=== PATIENT | female | born 1990 | race Caucasian/White ===

== ENCOUNTER → 2017-12-17 17:05 | Outpatient (CLI) | payer OTHER, MEDICAID, SELFPAY | PROVIDERS: PCP Pediatrics; Visit Provider Family Medicine | DX: Z11.3 Encounter for screening for infections with a predominantly sexual mode of transmission (principal) | CPT/HCPCS: 87491; 87591 ==

== ENCOUNTER 2023-01-13 12:42 | Emergency (ER) | payer OTHER, MEDICAID, SELFPAY ==
[2023-01-13] VITALS (115 sets, daily range): BP systolic 71–143; BP diastolic 40–82; PULSE 104–150; RESP 14–39; TEMP 36.1–40.4; O2SAT 88–100; BMI 28.3
--- NOTE | 2023-01-13 13:14 | DI.RAD.S_ITS ---
PROCEDURE: XR CHEST 1V INDICATIONS: suspected sepsis TECHNIQUE: One view of the chest was acquired. COMPARISON: None. FINDINGS: Surgical changes and devices: Left IJ central venous catheter tip projects over the low SVC. Lungs and pleura: Lungs are clear. No pleural effusions or pneumothorax. Mediastinum: Mediastinal contours appear normal. Heart size is normal. Bones and chest wall: No suspicious bony lesions. Overlying soft tissues appear unremarkable. IMPRESSION: Left IJ central venous catheter tip projects over the low SVC. Clear chest. Dictated by: Bobo Rodriguez M.D. on 01/13/2023 at 15:56 Approved by: Bobo Rodriguez M.D. on 01/13/2023 at 15:57
[2023-01-13] MEDS: SODIUM CHLORIDE 0.9% 1,000 ML 1000 ML IV (13:34)
--- NOTE | 2023-01-13 13:40 | ED_ITS ---
HPI - Weakness General Chief complaint: Fever Stated complaint: Poss heat exhaustion/dehydration Time Seen by Provider: 01/13/23 13:40 Source: patient Mode of arrival: Wheelchair History of Present Illness HPI Narrative: Patient 32-year-old female history of IV drug abuse presenting today with not feeling well. She reports that she is had fevers chills rigors. She is noted to be tachycardic and hypotensive in the ER. She is quite adamant that she has been clean for a couple of months however she was feeling so poorly over the last few days that she used again. She denies any shortness of breath or chest pain no abdominal pain nausea vomiting. No painful frequent urination. No swelling in her legs. Related Data Allergies Allergy/AdvReac Type Severity Reaction Status Date / Time No Known Drug Allergies Allergy Verified 01/13/23 13:10 Review of Systems Review of Systems ROS Unobtainable: All systems reviewed & are unremarkable except as noted in HPI and below Patient History Medical History Chicken pox Frequent UTI Hayfever IV drug abuse Pyelonephritis Surgical History Status post knee surgery (2010) Social History marital status: unmarried,living together number of children: 1 household members: significant other and family lives independently: Yes education level: high school [employer]: [employer] leisure activities: sports seatbelt use: always helmet use: Yes water heater temp set < 120 deg: No working smoke detector in home: Yes fire extinguisher in home: Yes carbon monox detector in home: Yes firearms in home: No do you feel safe at home: Yes Smoking Status: Former smoker second hand exposure: Yes alcohol intake: current substance use type: former substance user during the past year weight has: remained stable Type(s) of exercise: none frequency: does not exercise duration: decline to answer Smoking Status: Former smoker alcohol intake frequency: 0-2 drinks per day Substance Use Type: heroin and methamphetamine Exam Initial Vital Signs Initial Vital Signs: Vital Signs Temperature 97 F L 01/13/23 13:06 Pulse Rate 150 H 01/13/23 13:06 Respiratory Rate 14 01/13/23 13:06 Blood Pressure 83/50 L 01/13/23 13:06 Pulse Oximetry 100 01/13/23 13:06 Oxygen Delivery Method Room Air 01/13/23 13:06 GENERAL: Alert 32-year-old appears ill HEENT: Head atraumatic,EOMI, pupils reactive, face symmetric, moist mucous m embranes CARDIOVASCULAR: Tachycardic regular or rubs RESPIRATORY: Breath sounds equal bilaterally, no wheezes rales or rhonchi. ABDOMEN: Soft, nontender. Normoactive bowel sounds all 4 quadrants. No guarding or rebound. EXTREMITIES: Normal range of motion, no clubbing or edema. Neurovascularly i ntact NEUROLOGICAL: Alert and oriented x4. Moving all extremities SKIN: Track alcala noted bilateral external carotids Procedures Central Line Placement Left IJ: Time Out Performed: Yes Patient Placed on Monitor/Pulse Ox: Yes MD Prep: mask, gown and gloves Central Line Prep: Chlorhexidine scrub and sterile drapes applied Local Anesthetic: lidocaine 1% Amount of anesthesia used (mL): 4 Ultrasound Used for Placement: Yes Central Line Lumen Inserted: triple Post Procedure: good blood return, all ports aspirated, flushed, capped, sterile dressing applied and line stabilization device Post Procedure X-Ray: tip of catheter in good position and no pneumothorax seen Patient Tolerated Procedure: Well and No complications Additional Comments: Initial attempt was right-sided however unable to thread the wire there is a large valve. Left-sided was easily placed Course Orders Ordered: ED Orders 01/13/23 13:14 XR chest 1V Stat EKG-12 Lead Stat RT Consult Eval and Treat NOW 01/13/23 13:32 Respiratory Panel (Film Array) Stat 01/13/23 13:40 BNP [NT-proBNP (BNP-Adult 18+)] Stat Blood Culture Stat Complete Blood Count AUTO DIFF Stat Comprehensive Metabolic Panel Stat ETOH [Ethanol (ETOH)] Stat Lactate (Lactic Acid) Stat Lipase Stat PTT Partial Thromboplastin Jameel Stat Test Serum,Qual Stat Procalcitonin Stat Prothrombin Time INR Stat Troponin & CK Cardiac Panel Stat 01/13/23 14:28 EC echo limited Stat 01/13/23 14:30 PRBC [Packed Cells] Stat Type and Screen Stat 01/13/23 15:27 Urine Drug Screen, Rapid Stat 01/13/23 17:55 Transfusion Reaction Stat NOREPINEPHRINE BITARTRATE/D5W (Levophed) 4 mg in 250 mls @ 23.814 mls/hr IV TITRATE JEFERSON; Protocol Last Titration: 01/13/23 19:59 Dose: 0.13 mcg/kg/min, 30.958 mls/hr Documented By: Titration: 01/13/23 19:34 Dose: 0.1 mcg/kg/min, 23.814 mls/hr Documented By: Titration: 01/13/23 16:22 Dose: 0.06 mcg/kg/min, 15 mls/hr Documented By: Titration: 01/13/23 16:10 Dose: 0.1 mcg/kg/min, 23.814 mls/hr Documented By: Titration: 01/13/23 15:48 Dose: 0 mcg/kg/min, 0 mls/hr Documented By: Admin: 01/13/23 14:41 Dose: 0.1 mcg/kg/min, 23.814 mls/hr Documented By: SB Sodium Chloride (Normal Saline 0.9%) 1,000 mls @ 150 mls/hr IV CONT JEFERSON Last Admin: 01/13/23 18:46 Dose: 150 mls/hr Documented By: SB Ondansetron HCl (Ondansetron 4 Mg Odt) 4 mg SL NOW PRN PRN Reason: Nausea And Vomiting Discontinued Medications Acetaminophen (Acetaminophen 325 Mg Tablet) 975 mg PO NOW ONE Stop: 01/13/23 17:17 Last Admin: 01/13/23 17:37 Dose: 975 mg Documented By: SB Sodium Chloride (Normal Saline 0.9%) 1,000 mls @ 1,000 mls/hr IV BOLUS ONE Stop: 01/13/23 14:13 Last Infusion: 01/13/23 14:24 Dose: 0 mls/hr Documented By: Infusion: 01/13/23 14:21 Dose: 0 mls/hr Documented By: Admin: 01/13/23 13:34 Dose: 1,000 mls/hr Documented By: SB Sodium Chloride (Normal Saline 0.9%) 1,905.09 mls @ 635.03 mls/hr 30 ml/kg infuse over 3 hr (1905.09 ml) IV NOW ONE Stop: 01/13/23 17:19 Last Infusion: 01/13/23 16:13 Dose: 0 mls/hr Documented By: Infusion: 01/13/23 14:36 Dose: 999 mls/hr Documented By: Admin: 01/13/23 14:22 Dose: 635.03 mls/hr Documented By: LING Vancomycin HCl (Vancomycin) 1,000 mg in 200 mls @ 200 mls/hr IV NOW ONE Stop: 01/13/23 15:38 Last Infusion: 01/13/23 16:37 Dose: 0 mls/hr Documented By: Admin: 01/13/23 15:30 Dose: 200 mls/hr Documented By: LING Piperacillin Sod/Tazobactam (Sod 4.5 gm/ Sodium Chloride) 100 mls @ 200 mls/hr IV NOW ONE Stop: 01/13/23 14:40 Last Infusion: 01/13/23 15:29 Dose: 0 mls/hr Documented By: Admin: 01/13/23 14:47 Dose: 200 mls/hr Documented By: LING Ketorolac Tromethamine (Ketorolac 30 Mg/Ml Vial) 15 mg IV NOW ONE Stop: 01/13/23 18:25 Last Admin: 01/13/23 18:38 Dose: 15 mg Documented By: LING Ondansetron HCl (Ondansetron 4 Mg/2 Ml Inj) 4 mg IV NOW PRN PRN Reason: Nausea And Vomiting Last Admin: 01/13/23 18:38 Dose: 4 mg Documented By: LING Vital Signs Vital signs: Vital Signs - 8 hr 01/13/23 13:06 01/13/23 13:25 01/13/23 13:26 Temperature 97 F L Pulse Rate 150 H Respiratory Rate 14 Blood Pressure 83/50 L 81/53 L Pulse Oximetry 100 91 Oxygen Delivery Method Room Air Oxygen Flow Rate 01/13/23 13:26 01/13/23 13:30 01/13/23 13:30 Temperature Pulse Rate 141 H 143 H Respiratory Rate Blood Pressure 82/52 L Pulse Oximetry 93 99 Oxygen Delivery Method Oxygen Flow Rate 01/13/23 13:33 01/13/23 13:33 01/13/23 13:35 Temperature Pulse Rate 140 H Respiratory Rate 25 H Blood Pressure 83/54 L 88/54 L Pulse Oximetry 100 Oxygen Delivery Method Oxygen Flow Rate 01/13/23 13:35 01/13/23 13:40 01/13/23 13:42 Temperature Pulse Rate 138 H 140 H 140 H Respiratory Rate 27 H 28 H 22 Blood Pressure Pulse Oximetry 99 Oxygen Delivery Method Room Air Oxygen Flow Rate 01/13/23 13:42 01/13/23 13:45 01/13/23 13:45 Temperature Pulse Rate 136 H Respiratory Rate 28 H Blood Pressure 90/54 L 84/54 L Pulse Oximetry Oxygen Delivery Method Oxygen Flow Rate 01/13/23 13:50 01/13/23 13:55 01/13/23 14:02 Temperature Pulse Rate 131 H 133 H Respiratory Rate 24 26 H Blood Pressure 93/58 L Pulse Oximetry 96 97 Oxygen Delivery Method Oxygen Flow Rate 01/13/23 14:02 01/13/23 14:05 01/13/23 14:05 Temperature Pulse Rate 130 H 130 H Respiratory Rate 30 H 25 H Blood Pressure 94/63 Pulse Oximetry 95 96 Oxygen Delivery Method Room Air Oxygen Flow Rate 01/13/23 14:10 01/13/23 14:10 01/13/23 14:15 Temperature Pulse Rate 130 H Respiratory Rate 26 H Blood Pressure 97/57 L 82/52 L Pulse Oximetry 97 Oxygen Delivery Method Oxygen Flow Rate 01/13/23 14:15 01/13/23 14:20 01/13/23 14:20 Temperature Pulse Rate 128 H 128 H Respiratory Rate 26 H 26 H Blood Pressure 84/53 L Pulse Oximetry 96 98 Oxygen Delivery Method Room Air Oxygen Flow Rate 01/13/23 14:25 01/13/23 14:25 01/13/23 14:30 Temperature Pulse Rate 126 H Respiratory Rate 28 H Blood Pressure 85/53 L 71/40 L Pulse Oximetry 96 Oxygen Delivery Method Oxygen Flow Rate 01/13/23 14:30 01/13/23 14:32 01/13/23 14:32 Temperature Pulse Rate 128 H 132 H Respiratory Rate 29 H 34 H Blood Pressure 79/53 L Pulse Oximetry 95 96 Oxygen Delivery Method Room Air Room Air Oxygen Flow Rate 01/13/23 14:35 01/13/23 14:35 01/13/23 14:40 Temperature Pulse Rate 128 H Respiratory Rate 25 H Blood Pressure 82/53 L 85/55 L Pulse Oximetry 95 Oxygen Delivery Method Oxygen Flow Rate 01/13/23 14:40 01/13/23 14:45 01/13/23 14:45 Temperature Pulse Rate 126 H 118 H Respiratory Rate 31 H 34 H Blood Pressure 117/59 L Pulse Oximetry 92 97 Oxygen Delivery Method Oxygen Flow Rate 01/13/23 14:50 01/13/23 14:50 01/13/23 14:55 Temperature Pulse Rate 118 H 112 H Respiratory Rate 30 H 30 H Blood Pressure 119/64 Pulse Oximetry 88 L 96 Oxygen Delivery Method Room Air Nasal Cannula Oxygen Flow Rate 2 01/13/23 15:00 01/13/23 15:03 01/13/23 15:03 Temperature Pulse Rate 120 H 124 H Respiratory Rate 29 H 30 H Blood Pressure 95/53 L Pulse Oximetry 96 98 Oxygen Delivery Method Oxygen Flow Rate 01/13/23 15:05 01/13/23 15:10 01/13/23 15:15 Temperature Pulse Rate 124 H 121 H 117 H Respiratory Rate 29 H 31 H 34 H Blood Pressure Pulse Oximetry 96 99 100 Oxygen Delivery Method Oxygen Flow Rate 01/13/23 16:01 01/13/23 15:20 01/13/23 15:25 Temperature 98.4 F Pulse Rate 126 H 121 H 104 H Respiratory Rate 28 H 32 H 32 H Blood Pressure 93/52 L Pulse Oximetry 100 100 Oxygen Delivery Method Oxygen Flow Rate 01/13/23 15:30 01/13/23 15:35 01/13/23 15:36 Temperature Pulse Rate 114 H 114 H Respiratory Rate 34 H 32 H Blood Pressure 131/82 Pulse Oximetry 99 99 Oxygen Delivery Method Oxygen Flow Rate 01/13/23 15:36 01/13/23 15:40 01/13/23 15:40 Temperature Pulse Rate 117 H 116 H Respiratory Rate 33 H 36 H Blood Pressure 129/82 Pulse Oximetry 97 95 Oxygen Delivery Method Oxygen Flow Rate 01/13/23 15:45 01/13/23 15:45 01/13/23 15:50 Temperature Pulse Rate 118 H Respiratory Rate 28 H Blood Pressure 127/70 108/56 L Pulse Oximetry 94 Oxygen Delivery Method Oxygen Flow Rate 01/13/23 15:50 01/13/23 15:55 01/13/23 15:55 Temperature Pulse Rate 122 H 125 H Respiratory Rate 33 H 27 H Blood Pressure 90/53 L Pulse Oximetry 93 95 Oxygen Delivery Method Oxygen Flow Rate 01/13/23 16:00 01/13/23 16:00 01/13/23 16:05 Temperature Pulse Rate 125 H Respiratory Rate 30 H Blood Pressure 93/52 L 88/50 L Pulse Oximetry 98 Oxygen Delivery Method Oxygen Flow Rate 01/13/23 16:05 01/13/23 16:19 01/13/23 16:10 Temperature 99.3 F Pulse Rate 125 H 116 H Respiratory Rate 26 H 27 H Blood Pressure 113/73 88/50 L Pulse Oximetry 98 Oxygen Delivery Method Nasal Cannula Oxygen Flow Rate 2 01/13/23 16:10 01/13/23 16:15 01/13/23 16:15 Temperature Pulse Rate 125 H 113 H Respiratory Rate 27 H 30 H Blood Pressure 143/68 H Pulse Oximetry 99 99 Oxygen Delivery Method Oxygen Flow Rate 01/13/23 16:57 01/13/23 16:19 01/13/23 16:19 Temperature 99.9 F H 99.3 F Pulse Rate 124 H 116 H Respiratory Rate 26 H 31 H Blood Pressure 106/60 113/73 Pulse Oximetry 99 Oxygen Delivery Method Oxygen Flow Rate 01/13/23 16:20 01/13/23 16:20 01/13/23 16:25 Temperature 99.3 F Pulse Rate 116 H Respiratory Rate 27 H Blood Pressure 114/74 101/59 L Pulse Oximetry 99 Oxygen Delivery Method Oxygen Flow Rate 01/13/23 16:25 01/13/23 16:30 01/13/23 16:30 Temperature 99.3 F 99.3 F Pulse Rate 123 H 122 H Respiratory Rate 33 H 27 H Blood Pressure 95/57 L Pulse Oximetry 99 99 Oxygen Delivery Method Oxygen Flow Rate 01/13/23 16:35 01/13/23 16:35 01/13/23 16:40 Temperature 99.5 F Pulse Rate 123 H Respiratory Rate 29 H Blood Pressure 104/58 L 102/56 L Pulse Oximetry 99 Oxygen Delivery Method Oxygen Flow Rate 01/13/23 16:40 01/13/23 16:45 01/13/23 16:45 Temperature 99.5 F 99.5 F Pulse Rate 123 H 126 H Respiratory Rate 28 H 31 H Blood Pressure 96/52 L Pulse Oximetry 100 98 Oxygen Delivery Method Oxygen Flow Rate 01/13/23 16:50 01/13/23 16:50 01/13/23 16:55 Temperature 99.7 F H Pulse Rate 125 H Respiratory Rate 32 H Blood Pressure 105/60 106/60 Pulse Oximetry 95 Oxygen Delivery Method Oxygen Flow Rate 01/13/23 16:55 01/13/23 17:00 01/13/23 17:00 Temperature 99.7 F H 99.9 F H Pulse Rate 124 H 122 H Respiratory Rate 28 H 24 Blood Pressure 105/61 Pulse Oximetry 100 99 Oxygen Delivery Method Nasal Cannula Oxygen Flow Rate 1 01/13/23 17:05 01/13/23 17:05 01/13/23 17:32 Temperature 100.0 F H 98.9 F Pulse Rate 127 H 130 H Respiratory Rate 27 H Blood Pressure 104/61 Pulse Oximetry 99 Oxygen Delivery Method Oxygen Flow Rate 01/13/23 17:10 01/13/23 17:10 01/13/23 17:15 Temperature 100.2 F H Pulse Rate 126 H Respiratory Rate 27 H Blood Pressure 107/61 109/61 Pulse Oximetry 99 Oxygen Delivery Method Oxygen Flow Rate 01/13/23 17:15 01/13/23 17:20 01/13/23 17:20 Temperature 100.4 F H 100.4 F H Pulse Rate 127 H 128 H Respiratory Rate 29 H 31 H Blood Pressure 101/60 Pulse Oximetry 98 99 Oxygen Delivery Method Nasal Cannula Oxygen Flow Rate 2 01/13/23 17:25 01/13/23 17:25 01/13/23 17:37 Temperature 100.6 F H 100.9 F H Pulse Rate 130 H Respiratory Rate 29 H Blood Pressure 104/61 Pulse Oximetry 98 Oxygen Delivery Method Oxygen Flow Rate 01/13/23 17:59 01/13/23 18:00 01/13/23 17:30 Temperature 101.7 F H Pulse Rate 133 H Respiratory Rate 32 H Blood Pressure 100/58 L 105/65 Pulse Oximetry 97 Oxygen Delivery Method Nasal Cannula Oxygen Flow Rate 3 01/13/23 17:30 01/13/23 17:35 01/13/23 17:35 Temperature 100.8 F H 100.9 F H Pulse Rate 129 H 131 H Respiratory Rate 26 H 31 H Blood Pressure 105/65 Pulse Oximetry 98 99 Oxygen Delivery Method Nasal Cannula Nasal Cannula Oxygen Flow Rate 2 2 01/13/23 17:40 01/13/23 17:45 01/13/23 17:45 Temperature 101.3 F H Pulse Rate 129 H Respiratory Rate 32 H Blood Pressure 101/62 107/67 Pulse Oximetry 98 Oxygen Delivery Method Oxygen Flow Rate 01/13/23 17:50 01/13/23 17:50 01/13/23 17:55 Temperature 101.5 F H Pulse Rate 130 H Respiratory Rate 32 H Blood Pressure 110/67 100/58 L Pulse Oximetry 97 Oxygen Delivery Method Oxygen Flow Rate 01/13/23 17:55 01/13/23 18:00 01/13/23 18:00 Temperature 101.7 F H 101.8 F H Pulse Rate 134 H 133 H Respiratory Rate 33 H 33 H Blood Pressure 111/68 Pulse Oximetry 88 L 88 L Oxygen Delivery Method Nasal Cannula Nasal Cannula Oxygen Flow Rate 2 3 01/13/23 18:05 01/13/23 18:05 01/13/23 18:10 Temperature 102.0 F H Pulse Rate 134 H Respiratory Rate 31 H Blood Pressure 117/68 112/63 Pulse Oximetry 98 Oxygen Delivery Method Oxygen Flow Rate 01/13/23 18:10 01/13/23 18:15 01/13/23 18:15 Temperature 102.2 F H 102.4 F H Pulse Rate 134 H 133 H Respiratory Rate 35 H 32 H Blood Pressure 113/60 Pulse Oximetry 98 99 Oxygen Delivery Method Nasal Cannula Oxygen Flow Rate 3 01/13/23 18:20 01/13/23 18:20 01/13/23 18:38 Temperature 102.7 F H 103.5 F H Pulse Rate 140 H Respiratory Rate 34 H Blood Pressure 114/61 Pulse Oximetry 97 Oxygen Delivery Method Oxygen Flow Rate 01/13/23 18:25 01/13/23 18:25 01/13/23 18:30 Temperature 102.9 F H Pulse Rate 141 H Respiratory Rate 34 H Blood Pressure 110/64 106/61 Pulse Oximetry 98 Oxygen Delivery Method Oxygen Flow Rate 01/13/23 18:30 01/13/23 18:35 01/13/23 18:35 Temperature 103.1 F H 103.3 F H Pulse Rate 137 H 138 H Respiratory Rate 33 H 26 H Blood Pressure 117/63 Pulse Oximetry 99 99 Oxygen Delivery Method Oxygen Flow Rate 01/13/23 18:40 01/13/23 18:40 01/13/23 18:45 Temperature 103.6 F H Pulse Rate 143 H Respiratory Rate 35 H Blood Pressure 113/64 114/61 Pulse Oximetry 99 Oxygen Delivery Method Oxygen Flow Rate 01/13/23 18:45 01/13/23 18:50 01/13/23 18:50 Temperature 103.8 F H 104.0 F H Pulse Rate 145 H 145 H Respiratory Rate 35 H 35 H Blood Pressure 115/56 L Pulse Oximetry 97 98 Oxygen Delivery Method Nasal Cannula Oxygen Flow Rate 2 01/13/23 19:04 01/13/23 18:55 01/13/23 18:55 Temperature 104.4 F H 104.2 F H Pulse Rate 145 H Respiratory Rate 35 H Blood Pressure 109/56 L Pulse Oximetry 96 Oxygen Delivery Method Oxygen Flow Rate 01/13/23 19:00 01/13/23 19:00 01/13/23 19:05 Temperature 104.4 F H Pulse Rate 149 H Respiratory Rate 34 H Blood Pressure 109/58 L 114/59 L Pulse Oximetry 91 Oxygen Delivery Method Oxygen Flow Rate 01/13/23 19:05 01/13/23 19:10 01/13/23 19:10 Temperature 104.4 F H Pulse Rate 144 H 144 H Respiratory Rate 32 H 29 H Blood Pressure 106/53 L Pulse Oximetry 100 99 Oxygen Delivery Method Oxygen Flow Rate 01/13/23 19:15 01/13/23 19:15 01/13/23 19:20 Temperature 104.5 F H Pulse Rate 145 H Respiratory Rate 31 H Blood Pressure 97/53 L 92/46 L Pulse Oximetry 99 Oxygen Delivery Method Oxygen Flow Rate 01/13/23 19:20 01/13/23 19:25 01/13/23 19:25 Temperature 104.5 F H 104.7 F H Pulse Rate 146 H 146 H Respiratory Rate 28 H 22 Blood Pressure 92/47 L Pulse Oximetry 99 100 Oxygen Delivery Method Oxygen Flow Rate 01/13/23 19:30 01/13/23 19:30 01/13/23 19:41 Temperature 104.7 F H 104.7 F H Pulse Rate 146 H Respiratory Rate 21 Blood Pressure 87/43 L Pulse Oximetry 100 Oxygen Delivery Method Oxygen Flow Rate 01/13/23 19:35 01/13/23 19:35 01/13/23 19:39 Temperature 104.7 F H Pulse Rate 145 H Respiratory Rate 26 H Blood Pressure 87/47 L 92/47 L Pulse Oximetry 99 Oxygen Delivery Method Oxygen Flow Rate 01/13/23 19:39 01/13/23 19:40 01/13/23 19:40 Temperature 104.7 F H 104.7 F H Pulse Rate 146 H 146 H Respiratory Rate 35 H 20 Blood Pressure 90/46 L Pulse Oximetry 99 99 Oxygen Delivery Method Nasal Cannula Oxygen Flow Rate 3 01/13/23 19:45 01/13/23 19:45 01/13/23 19:50 Temperature 104.7 F H Pulse Rate 145 H Respiratory Rate 27 H Blood Pressure 93/49 L 92/46 L Pulse Oximetry 98 Oxygen Delivery Method Oxygen Flow Rate 01/13/23 19:50 01/13/23 19:55 01/13/23 19:55 Temperature 104.5 F H 104.5 F H Pulse Rate 145 H 142 H Respiratory Rate 23 27 H Blood Pressure 88/45 L Pulse Oximetry 99 99 Oxygen Delivery Method Oxygen Flow Rate 01/13/23 20:00 01/13/23 20:00 01/13/23 20:05 Temperature 104.4 F H Pulse Rate 141 H Respiratory Rate 23 Blood Pressure 86/46 L 92/51 L Pulse Oximetry 99 Oxygen Delivery Method Oxygen Flow Rate 01/13/23 20:05 01/13/23 20:10 01/13/23 20:10 Temperature 104.2 F H 104.0 F H Pulse Rate 143 H 143 H Respiratory Rate 27 H 31 H Blood Pressure 98/52 L Pulse Oximetry 99 97 Oxygen Delivery Method Oxygen Flow Rate 01/13/23 20:15 01/13/23 20:15 01/13/23 20:20 Temperature 103.8 F H Pulse Rate 142 H Respiratory Rate 27 H Blood Pressure 99/51 L 99/52 L Pulse Oximetry 97 Oxygen Delivery Method Oxygen Flow Rate 01/13/23 20:20 01/13/23 20:25 01/13/23 20:25 Temperature 103.6 F H 103.5 F H Pulse Rate 137 H 143 H Respiratory Rate 32 H 24 Blood Pressure 102/53 L Pulse Oximetry 98 98 Oxygen Delivery Method Oxygen Flow Rate 01/13/23 20:30 01/13/23 20:30 01/13/23 20:35 Temperature 103.3 F H Pulse Rate 145 H Respiratory Rate 23 Blood Pressure 106/55 L 105/57 L Pulse Oximetry 98 Oxygen Delivery Method Oxygen Flow Rate 01/13/23 20:35 01/13/23 20:40 01/13/23 20:40 Temperature 103.3 F H 102.9 F H Pulse Rate 138 H 138 H Respiratory Rate 28 H 28 H Blood Pressure 102/56 L Pulse Oximetry 98 98 Oxygen Delivery Method Nasal Cannula Oxygen Flow Rate 3 MDM - Weakness Lab Data 01/13/23 13:40 01/13/23 13:40 Labs: Lab Results 01/13/23 01/13/23 01/13/23 Range/Units 13:32 13:40 13:40 WBC 9.2 (4.5-11.0) X10^3/uL RBC 3.96 L (4.0-5.2) X10^6/uL Hgb 6.3 L* (12.0-16.0) g/dL Hct 20.9 L* (36-46) % MCV 52.9 L (80-100) fL MCH 15.9 L (26-34) PG MCHC 30.2 (30-36) % RDW 19.0 H (11.6-14.8) % Plt Count 96 L (150-400) X10^3/uL Neut % (Auto) 88.0 H (50-75) % Lymph % (Auto) 5.7 L (25-40) % Morrison % (Auto) 6.0 (3-14) % Eos % (Auto) 0.1 L (2-4) % Baso % (Auto) 0.2 (0-2) % Neut # (Auto) 8100 H (6581-4254) /uL Lymph # (Auto) 500 L (8500-3805) /uL Morrison # (Auto) 500 (0-900) /uL Eos # (Auto) 0 (0-450) /uL Baso # (Auto) 0 (0-100) /uL RBC Morphology See below Hypochromasia 1+ H Anisocytosis 1+ H Microcytosis 2+ H PT 17.5 H (10.1-12.7) SECONDS INR 1.5 H (0.9-1.3) APTT 31 (26-36) SECONDS Sodium (137-145) mmol/L Potassium (3.4-5.1) mmol/L Chloride (98-107) mmol/L Carbon Dioxide (22-32) mmol/L BUN (7-17) mg/dL Creatinine (0.52-1.04) mg/dL Estimated GFR (>60) mL/min BUN/Creatinine Ratio (6-22) Glucose (70-100) mg/dL Lactate (0.7-2.1) mmol/L Calcium (8.4-10.2) mg/dL Total Bilirubin (0.2-1.3) mg/dL AST (14-36) IU/L ALT (<35) IU/L Alkaline Phosphatase (38-126) U/L Total Creatine Kinase (30-135) U/L Troponin I (0.01-0.034) ng/mL NT-Pro-B Natriuret Pep (<125) pg/mL Total Protein (6.3-8.2) g/dL Albumin (3.5-5.0) g/dL Globulin (1.7-4.1) g/dL Albumin/Globulin Ratio (1.0-2.8) Lipase (23-300) U/L Procalcitonin (<0.5) ng/mL Serum , Qual (Negative) U Opiates 300ng/mL cut (Negative) Ur Oxycodone Screen (Negative) Urine Methadone Screen (Negative) Ur Barbiturates Screen (Negative) U Tricyclic Antidepress (Negative) Ur Phencyclidine Scrn (Negative) Ur Amphetamines Screen (Negative) U Methamphetamines Scrn (Negative) Ur MDMA Scrn (Ecstasy) (Negative) U Benzodiazepines Scrn (Negative) Urine Cocaine Screen (Negative) U Marijuana (THC) Screen (Negative) Ethyl Alcohol ( - 10) mg/dL Chlamy pneumoniae PCR Not detected (Not Detect) Adenovirus (PCR) Not detected (Not Detect) B. pertussis DNA (PCR) Not detected (Not Detecte) B.parapertussis DNA PCR Not detected (Not Detecte) Coronavirus OC43 (PCR) Not detected (Not Detect) Coronavirus HKU1 (PCR) Not detected (Not Detect) Coronavirus 229E (PCR) Not detected (Not Detect) SARS-CoV-2 (PCR) Not detected (Not Detecte) Coronavirus NL63 (PCR) Not detected (Not Detect) Human Metapneumovir PCR Not detected (Not Detect) Influenza Type A (PCR) Not detected (Not Detect) Influenza Type B (PCR) Not detected (Not Detect) M. pneumoniae (PCR) Not detected (Not Detect) Parainfluenza 1 (PCR) Not detected (Not Detect) Parainfluenza 2 (PCR) Not detected (Not Detect) Parainfluenza 3 (PCR) Not detected (Not Detect) Parainfluenza 4 (PCR) Not detected (Not Detect) RSV (PCR) Not detected (Not Detect) Entero/Rhino (PCR) Not detected (Not Detect) Blood Type Antibody Screen Crossmatch Transfusion React Rpt Donor Unit # Lab Clerical Err Check Pre-Trans Blood Type Pre-Trans Vis Hemolysis Pre-Trans Antibody Scrn Post-Trans Blood Type Post-Tx Visible Hemolys Post-Trans Antibody Scrn Reaction Path Interpret 01/13/23 01/13/23 01/13/23 Range/Units 13:40 13:40 13:40 WBC (4.5-11.0) X10^3/uL RBC (4.0-5.2) X10^6/uL Hgb (12.0-16.0) g/dL Hct (36-46) % MCV (80-100) fL MCH (26-34) PG MCHC (30-36) % RDW (11.6-14.8) % Plt Count (150-400) X10^3/uL Neut % (Auto) (50-75) % Lymph % (Auto) (25-40) % Morrison % (Auto) (3-14) % Eos % (Auto) (2-4) % Baso % (Auto) (0-2) % Neut # (Auto) (9245-8582) /uL Lymph # (Auto) (1620-9629) /uL Morrison # (Auto) (0-900) /uL Eos # (Auto) (0-450) /uL Baso # (Auto) (0-100) /uL RBC Morphology Hypochromasia Anisocytosis Microcytosis PT (10.1-12.7) SECONDS INR (0.9-1.3) APTT (26-36) SECONDS Sodium 128 L (137-145) mmol/L Potassium 3.2 L (3.4-5.1) mmol/L Chloride 93 L (98-107) mmol/L Carbon Dioxide 21 L (22-32) mmol/L BUN 22 H (7-17) mg/dL Creatinine 1.40 H (0.52-1.04) mg/dL Estimated GFR 52 L (>60) mL/min BUN/Creatinine Ratio 15.7 (6-22) Glucose 107 H (70-100) mg/dL Lactate 4.6 H* (0.7-2.1) mmol/L Calcium 8.7 (8.4-10.2) mg/dL Total Bilirubin 0.9 (0.2-1.3) mg/dL AST 139 H (14-36) IU/L ALT 56 H (<35) IU/L Alkaline Phosphatase 100 (38-126) U/L Total Creatine Kinase 710 H (30-135) U/L Troponin I < 0.012 (0.01-0.034) ng/mL NT-Pro-B Natriuret Pep 1290 H (<125) pg/mL Total Protein 7.8 (6.3-8.2) g/dL Albumin 3.8 (3.5-5.0) g/dL Globulin 4.0 (1.7-4.1) g/dL Albumin/Globulin Ratio 1.0 (1.0-2.8) Lipase 24 (23-300) U/L Procalcitonin 40.1 H (<0.5) ng/mL Serum , Qual (Negative) U Opiates 300ng/mL cut (Negative) Ur Oxycodone Screen (Negative) Urine Methadone Screen (Negative) Ur Barbiturates Screen (Negative) U Tricyclic Antidepress (Negative) Ur Phencyclidine Scrn (Negative) Ur Amphetamines Screen (Negative) U Methamphetamines Scrn (Negative) Ur MDMA Scrn (Ecstasy) (Negative) U Benzodiazepines Scrn (Negative) Urine Cocaine Screen (Negative) U Marijuana (THC) Screen (Negative) Ethyl Alcohol ( - 10) mg/dL Chlamy pneumoniae PCR (Not Detect) Adenovirus (PCR) (Not Detect) B. pertussis DNA (PCR) (Not Detecte) B.parapertussis DNA PCR (Not Detecte) Coronavirus OC43 (PCR) (Not Detect) Coronavirus HKU1 (PCR) (Not Detect) Coronavirus 229E (PCR) (Not Detect) SARS-CoV-2 (PCR) (Not Detecte) Coronavirus NL63 (PCR) (Not Detect) Human Metapneumovir PCR (Not Detect) Influenza Type A (PCR) (Not Detect) Influenza Type B (PCR) (Not Detect) M. pneumoniae (PCR) (Not Detect) Parainfluenza 1 (PCR) (Not Detect) Parainfluenza 2 (PCR) (Not Detect) Parainfluenza 3 (PCR) (Not Detect) Parainfluenza 4 (PCR) (Not Detect) RSV (PCR) (Not Detect) Entero/Rhino (PCR) (Not Detect) Blood Type Antibody Screen Crossmatch Transfusion React Rpt Donor Unit # Lab Clerical Err Check Pre-Trans Blood Type Pre-Trans Vis Hemolysis Pre-Trans Antibody Scrn Post-Trans Blood Type Post-Tx Visible Hemolys Post-Trans Antibody Scrn Reaction Path Interpret 01/13/23 01/13/23 01/13/23 Range/Units 13:40 13:40 14:30 WBC (4.5-11.0) X10^3/uL RBC (4.0-5.2) X10^6/uL Hgb (12.0-16.0) g/dL Hct (36-46) % MCV (80-100) fL MCH (26-34) PG MCHC (30-36) % RDW (11.6-14.8) % Plt Count (150-400) X10^3/uL Neut % (Auto) (50-75) % Lymph % (Auto) (25-40) % Morrison % (Auto) (3-14) % Eos % (Auto) (2-4) % Baso % (Auto) (0-2) % Neut # (Auto) (6562-0168) /uL Lymph # (Auto) (2062-1079) /uL Morrison # (Auto) (0-900) /uL Eos # (Auto) (0-450) /uL Baso # (Auto) (0-100) /uL RBC Morphology Hypochromasia Anisocytosis Microcytosis PT (10.1-12.7) SECONDS INR (0.9-1.3) APTT (26-36) SECONDS Sodium (137-145) mmol/L Potassium (3.4-5.1) mmol/L Chloride (98-107) mmol/L Carbon Dioxide (22-32) mmol/L BUN (7-17) mg/dL Creatinine (0.52-1.04) mg/dL Estimated GFR (>60) mL/min BUN/Creatinine Ratio (6-22) Glucose (70-100) mg/dL Lactate (0.7-2.1) mmol/L Calcium (8.4-10.2) mg/dL Total Bilirubin (0.2-1.3) mg/dL AST (14-36) IU/L ALT (<35) IU/L Alkaline Phosphatase (38-126) U/L Total Creatine Kinase (30-135) U/L Troponin I (0.01-0.034) ng/mL NT-Pro-B Natriuret Pep (<125) pg/mL Total Protein (6.3-8.2) g/dL Albumin (3.5-5.0) g/dL Globulin (1.7-4.1) g/dL Albumin/Globulin Ratio (1.0-2.8) Lipase (23-300) U/L Procalcitonin (<0.5) ng/mL Serum , Qual Negative (Negative) U Opiates 300ng/mL cut (Negative) Ur Oxycodone Screen (Negative) Urine Methadone Screen (Negative) Ur Barbiturates Screen (Negative) U Tricyclic Antidepress (Negative) Ur Phencyclidine Scrn (Negative) Ur Amphetamines Screen (Negative) U Methamphetamines Scrn (Negative) Ur MDMA Scrn (Ecstasy) (Negative) U Benzodiazepines Scrn (Negative) Urine Cocaine Screen (Negative) U Marijuana (THC) Screen (Negative) Ethyl Alcohol < 10 ( - 10) mg/dL Chlamy pneumoniae PCR (Not Detect) Adenovirus (PCR) (Not Detect) B. pertussis DNA (PCR) (Not Detecte) B.parapertussis DNA PCR (Not Detecte) Coronavirus OC43 (PCR) (Not Detect) Coronavirus HKU1 (PCR) (Not Detect) Coronavirus 229E (PCR) (Not Detect) SARS-CoV-2 (PCR) (Not Detecte) Coronavirus NL63 (PCR) (Not Detect) Human Metapneumovir PCR (Not Detect) Influenza Type A (PCR) (Not Detect) Influenza Type B (PCR) (Not Detect) M. pneumoniae (PCR) (Not Detect) Parainfluenza 1 (PCR) (Not Detect) Parainfluenza 2 (PCR) (Not Detect) Parainfluenza 3 (PCR) (Not Detect) Parainfluenza 4 (PCR) (Not Detect) RSV (PCR) (Not Detect) Entero/Rhino (PCR) (Not Detect) Blood Type O Positive Antibody Screen Negative Crossmatch See Detail Transfusion React Rpt Donor Unit # Lab Clerical Err Check Pre-Trans Blood Type Pre-Trans Vis Hemolysis Pre-Trans Antibody Scrn Post-Trans Blood Type Post-Tx Visible Hemolys Post-Trans Antibody Scrn Reaction Path Interpret 01/13/23 01/13/23 01/13/23 Range/Units 15:27 16:20 17:55 WBC (4.5-11.0) X10^3/uL RBC (4.0-5.2) X10^6/uL Hgb (12.0-16.0) g/dL Hct (36-46) % MCV (80-100) fL MCH (26-34) PG MCHC (30-36) % RDW (11.6-14.8) % Plt Count (150-400) X10^3/uL Neut % (Auto) (50-75) % Lymph % (Auto) (25-40) % Morrison % (Auto) (3-14) % Eos % (Auto) (2-4) % Baso % (Auto) (0-2) % Neut # (Auto) (7839-1930) /uL Lymph # (Auto) (9958-1188) /uL Morrison # (Auto) (0-900) /uL Eos # (Auto) (0-450) /uL Baso # (Auto) (0-100) /uL RBC Morphology Hypochromasia Anisocytosis Microcytosis PT (10.1-12.7) SECONDS INR (0.9-1.3) APTT (26-36) SECONDS Sodium (137-145) mmol/L Potassium (3.4-5.1) mmol/L Chloride (98-107) mmol/L Carbon Dioxide (22-32) mmol/L BUN (7-17) mg/dL Creatinine (0.52-1.04) mg/dL Estimated GFR (>60) mL/min BUN/Creatinine Ratio (6-22) Glucose (70-100) mg/dL Lactate 2.9 H (0.7-2.1) mmol/L Calcium (8.4-10.2) mg/dL Total Bilirubin (0.2-1.3) mg/dL AST (14-36) IU/L ALT (<35) IU/L Alkaline Phosphatase (38-126) U/L Total Creatine Kinase (30-135) U/L Troponin I (0.01-0.034) ng/mL NT-Pro-B Natriuret Pep (<125) pg/mL Total Protein (6.3-8.2) g/dL Albumin (3.5-5.0) g/dL Globulin (1.7-4.1) g/dL Albumin/Globulin Ratio (1.0-2.8) Lipase (23-300) U/L Procalcitonin (<0.5) ng/mL Serum , Qual (Negative) U Opiates 300ng/mL cut Positive H (Negative) Ur Oxycodone Screen Negative (Negative) Urine Methadone Screen Negative (Negative) Ur Barbiturates Screen Negative (Negative) U Tricyclic Antidepress Negative (Negative) Ur Phencyclidine Scrn Negative (Negative) Ur Amphetamines Screen Positive H (Negative) U Methamphetamines Scrn Positive H (Negative) Ur MDMA Scrn (Ecstasy) Negative (Negative) U Benzodiazepines Scrn Negative (Negative) Urine Cocaine Screen Negative (Negative) U Marijuana (THC) Screen Negative (Negative) Ethyl Alcohol ( - 10) mg/dL Chlamy pneumoniae PCR (Not Detect) Adenovirus (PCR) (Not Detect) B. pertussis DNA (PCR) (Not Detecte) B.parapertussis DNA PCR (Not Detecte) Coronavirus OC43 (PCR) (Not Detect) Coronavirus HKU1 (PCR) (Not Detect) Coronavirus 229E (PCR) (Not Detect) SARS-CoV-2 (PCR) (Not Detecte) Coronavirus NL63 (PCR) (Not Detect) Human Metapneumovir PCR (Not Detect) Influenza Type A (PCR) (Not Detect) Influenza Type B (PCR) (Not Detect) M. pneumoniae (PCR) (Not Detect) Parainfluenza 1 (PCR) (Not Detect) Parainfluenza 2 (PCR) (Not Detect) Parainfluenza 3 (PCR) (Not Detect) Parainfluenza 4 (PCR) (Not Detect) RSV (PCR) (Not Detect) Entero/Rhino (PCR) (Not Detect) Blood Type Antibody Screen Crossmatch Transfusion React Rpt No discrepancies Donor Unit # [id number] Lab Clerical Err Check No error found Pre-Trans Blood Type O positive Pre-Trans Vis Hemolysis No Pre-Trans Antibody Scrn Negative Post-Trans Blood Type O positive Post-Tx Visible Hemolys No Post-Trans Antibody Scrn Negative Reaction Path Interpret Bbfnh 01/13/23 Range/Units 17:55 WBC (4.5-11.0) X10^3/uL RBC (4.0-5.2) X10^6/uL Hgb (12.0-16.0) g/dL Hct (36-46) % MCV (80-100) fL MCH (26-34) PG MCHC (30-36) % RDW (11.6-14.8) % Plt Count (150-400) X10^3/uL Neut % (Auto) (50-75) % Lymph % (Auto) (25-40) % Morrison % (Auto) (3-14) % Eos % (Auto) (2-4) % Baso % (Auto) (0-2) % Neut # (Auto) (5743-0720) /uL Lymph # (Auto) (1702-1185) /uL Morrison # (Auto) (0-900) /uL Eos # (Auto) (0-450) /uL Baso # (Auto) (0-100) /uL RBC Morphology Hypochromasia Anisocytosis Microcytosis PT (10.1-12.7) SECONDS INR (0.9-1.3) APTT (26-36) SECONDS Sodium (137-145) mmol/L Potassium (3.4-5.1) mmol/L Chloride (98-107) mmol/L Carbon Dioxide (22-32) mmol/L BUN (7-17) mg/dL Creatinine (0.52-1.04) mg/dL Estimated GFR (>60) mL/min BUN/Creatinine Ratio (6-22) Glucose (70-100) mg/dL Lactate (0.7-2.1) mmol/L Calcium (8.4-10.2) mg/dL Total Bilirubin (0.2-1.3) mg/dL AST (14-36) IU/L ALT (<35) IU/L Alkaline Phosphatase (38-126) U/L Total Creatine Kinase (30-135) U/L Troponin I (0.01-0.034) ng/mL NT-Pro-B Natriuret Pep (<125) pg/mL Total Protein (6.3-8.2) g/dL Albumin (3.5-5.0) g/dL Globulin (1.7-4.1) g/dL Albumin/Globulin Ratio (1.0-2.8) Lipase (23-300) U/L Procalcitonin (<0.5) ng/mL Serum , Qual (Negative) U Opiates 300ng/mL cut (Negative) Ur Oxycodone Screen (Negative) Urine Methadone Screen (Negative) Ur Barbiturates Screen (Negative) U Tricyclic Antidepress (Negative) Ur Phencyclidine Scrn (Negative) Ur Amphetamines Screen (Negative) U Methamphetamines Scrn (Negative) Ur MDMA Scrn (Ecstasy) (Negative) U Benzodiazepines Scrn (Negative) Urine Cocaine Screen (Negative) U Marijuana (THC) Screen (Negative) Ethyl Alcohol ( - 10) mg/dL Chlamy pneumoniae PCR (Not Detect) Adenovirus (PCR) (Not Detect) B. pertussis DNA (PCR) (Not Detecte) B.parapertussis DNA PCR (Not Detecte) Coronavirus OC43 (PCR) (Not Detect) Coronavirus HKU1 (PCR) (Not Detect) Coronavirus 229E (PCR) (Not Detect) SARS-CoV-2 (PCR) (Not Detecte) Coronavirus NL63 (PCR) (Not Detect) Human Metapneumovir PCR (Not Detect) Influenza Type A (PCR) (Not Detect) Influenza Type B (PCR) (Not Detect) M. pneumoniae (PCR) (Not Detect) Parainfluenza 1 (PCR) (Not Detect) Parainfluenza 2 (PCR) (Not Detect) Parainfluenza 3 (PCR) (Not Detect) Parainfluenza 4 (PCR) (Not Detect) RSV (PCR) (Not Detect) Entero/Rhino (PCR) (Not Detect) Blood Type Antibody Screen Crossmatch Transfusion React Rpt Cancelled Donor Unit # Cancelled Lab Clerical Err Check Cancelled Pre-Trans Blood Type Cancelled Pre-Trans Vis Hemolysis Cancelled Pre-Trans Antibody Scrn Cancelled Post-Trans Blood Type Cancelled Post-Tx Visible Hemolys Cancelled Post-Trans Antibody Scrn Cancelled Reaction Path Interpret Cancelled Point of Care Testing Test Results Negative Urine Dip Bedside Urine Glucose Negative Bedside Urine Bilirubin - Negative Bedside Urine Ketone - Negative Urine Specific [place] 1.010 Bedside Urine Occult Blood - Negative Bedside Urine pH 6.0 Bedside Urine Protein +/- 15 Bedside Urine Urobilinogen - Negative Bedside Urine Nitrite - Negative Bedside Urine Leukocytes - Negative Esterase Imaging Data Chest x-ray: Radiologist Impression: PROCEDURE:? XR CHEST 1V ? INDICATIONS:? suspected sepsis ? TECHNIQUE:? One view of the chest was acquired.? ? COMPARISON:? None. ? FINDINGS:? ? Surgical changes and devices:? Left IJ central venous catheter tip projects over the low SVC. ? Lungs and pleura:? Lungs are clear.? No pleural effusions or pneumothorax.? ? Mediastinum:? Mediastinal contours appear normal.? Heart size is normal.? ? Bones and chest wall:? No suspicious bony lesions.? Overlying soft tissues appear unremarkable.? ? IMPRESSION:? Left IJ central venous catheter tip projects over the low SVC. ? Clear chest. ? ? Dictated by: Bobo Rodriguez M.D. on 01/13/2023 at 15:56 ? ? Echo limited: Radiologist Impression: :Name: IVAN LU ? Study Date: 01/13/2023 ? Height: 60 in : :Hospital ? ? ? ReadingLocation: ? Weight: 140 lb: : ? Gender: Female ? BSA: 1.6 m2 ? : :: 1990 ? Age: 32 yrs? BP: 95/53 mmHg: :Reason For Study: ENDOCARDITIS ? : :Ordering Physician: ZOILA, ? : :MARLY? Performed By: Argentina Meza ? : :Referring: MARLY CUMMINGS ? : + + Interpretation Summary Images were not obtained from all of the standard acoustic windows due to the limited scope of the study. The patient was in sinus tachycardia with heart rates between 113-123 bpm during the exam. The ejection fraction is estimated to be 60-65%. The interventricular septum is flattened, consistent with a right ventricular pressure/volume condition. The right ventricular systolic function is normal. There is a small vegetation or mass on the tricuspid valve. ? Procedure: ? Images were not obtained from all of the standard acoustic windows due to the limited scope of the study. The study quality was technically adequate. There is no prior echocardiogram noted for this patient. The patient was in sinus tachycardia with heart rates between 113-123 bpm during the exam. Left Ventricle: ? The left ventricle is normal in size and wall thickness. The ejection fraction is estimated to be 60-65%. The interventricular septum is flattened, consistent with a right ventricular pressure/volume condition. Right Ventricle: ? The right ventricular systolic function is normal. Mitral Valve: ? The mitral valve is grossly normal. A vegetation on the mitral valve cannot be excluded. Aortic Valve: ? The aortic valve is trileaflet. There is no obvious aortic valvular vegetation. No aortic regurgitation is present. Tricuspid Valve: ? There is a small vegetation or mass on the tricuspid valve. There is mild tricuspid regurgitation. Pulmonic Valve: ? The pulmonic valve is not well visualized. A pulmonic valvular vegetation cannot be excluded. Pericardium/ Pleura ? There is no pericardial effusion. There is no pleural effusion. ? MMode/2D Measurements & Calculations LVIDd: 4.3 cm LVIDs: 2.3 cm FS: 46.0 % IVSd: 1.1 cm LVPWd: 0.87 cm LV loomis. diameter/BSA (cm/m^2): 2.7 LV sys. diameter/BSA (cm/m^2): 1.4 ? Doppler Measurements & Calculations TR max lilia: 323.4 cm/sec TR max P.1 mmHg ? Reading Physician:PM ECG Data Interpretation: Sinus tachycardia rate 139 NH interval 120 QRS [address] changes MDM Narrative Medical decision making narrative: Patient 32-year-old female presenting today with septic shock. High concern for endocarditis with history of IVDA. She is confirmed to have a mass in vegetation on her tricuspid valve. She is given vancomycin and Zosyn. She got sepsis fluids. She is also found to be severely anemic with a hemoglobin 6.3 and hematocrit of 20. Blood transfusion was started along with Levophed. She developed a fever during the blood transfusion. Difficult to say if this is blood transfusion reaction versus is sepsis and infectious. Does blood transfusion was stopped blood was sent down and rechecked by lab per policy. There is no abnormality found upon retesting and blood is restarted. Critical bed shortage she is on wait list [facility] has been notified. She remains on Levophed which she responds well to. at [facility] updated patient's symptoms and test results. He kindly accepts patient. Mom and daughter are at bedside. Mom is well aware of patient's IV drug use. Due to patient's critical condition reasonable to air lift patient to definitive care as soon as possible. Critical Care Time Critical Care Time Critical Care Time: Yes Total Critical Care Time: 76 Attestation: The high probability of a clinically significant, sudden or life threatening deterioration of the [cardiovascular] system(s) required my full and direct attention, intervention and personal management. The aggregate critical care time was 76 minutes. This time is in addition to time spent performing reported procedures but includes the following: [x] Data Review and interpretation [x] Patient assessment and monitoring of vital signs [x] Documentation [x] Medication orders and management Discharge Plan Departure Patient Disposition: [facility] Clinical Impression: Endocarditis, Septic shock, Anemia, IVDA (intravenous drug abuse) complicating Referrals: Lorne Bernal MD [Primary Care Provider] -
--- NOTE | 2023-01-13 13:52 | PC.NURSE ---
Pt c/o fever, chills, generalized malaise for past two weeks. Patient is diaphoretic on chest, back and is slow with movements. She reports being an IV drug user that had stopped several months back but then began again after not feeling well. Pt also reports an old IUD with LMP ending a few days ago.
[2023-01-13 14:05] LABS: INR 1.5 (0.9-1.3); Prothrombin Time 17.5 SECONDS (10.1-12.7)
[2023-01-13 14:08] LABS: PTT Partial Thromboplastin Tim 31 SECONDS (26-36)
[2023-01-13 14:12] LABS: Alanine Aminotransferase 56 IU/L (<35); Albumin 3.8 g/dL (3.5-5.0); Alkaline Phosphatase 100 U/L (38-126); Aspartate Aminotransferase 139 IU/L (14-36); BUN Creatinine Ratio 15.7 (6-22); Basophils Absolute Auto 0 /uL (0-100); Basophils Percent Auto 0.2 % (0-2); Bilirubin Total 0.9 mg/dL (0.2-1.3); Blood Urea Nitrogen 22 mg/dL (7-17); Calcium 8.7 mg/dL (8.4-10.2); Carbon Dioxide 21 mmol/L (22-32); Chloride 93 mmol/L (98-107); Creatine Kinase 710 U/L (30-135); Eosinophils Absolute Auto 0 /uL (0-450); Eosinophils Percent Auto 0.1 % (2-4); Estimated Glomerular Filt Rate 52 mL/min (>60); Glucose 107 mg/dL (70-100); HEMOLYSIS < 15 (0-50); Lipase 24 U/L (23-300); Lymphocytes Absolute Auto 500 /uL (1100-4500); Lymphocytes Percent Auto 5.7 % (25-40); Mean Corpuscular HGB Conc 30.2 % (30-36); Mean Corpuscular Hemoglobin 15.9 PG (26-34); Mean Corpuscular Volume 52.9 fL (80-100); Monocytes Absolute Auto 500 /uL (0-900); Neutrophils Absolute Auto 8100 /uL (1500-7000); Platelet Count 96 X10^3/uL (150-400); Potassium 3.2 mmol/L (3.4-5.1); Red Blood Cell Count 3.96 X10^6/uL (4.0-5.2); Sodium 128 mmol/L (137-145); Total Protein 7.8 g/dL (6.3-8.2); White Blood Cell Count 9.2 X10^3/uL (4.5-11.0)
[2023-01-13 14:13] LABS: Pregnancy Test Serum,Qual Negative (Negative)
[2023-01-13 14:15] LABS: Ethanol (ETOH) < 10 mg/dL
[2023-01-13 14:17] LABS: Lactate (Lactic Acid) 4.6 mmol/L (0.7-2.1)
[2023-01-13] MEDS: SODIUM CHLORIDE 0.9% 1,905.09 ML 635.03 ML IV (14:22)
[2023-01-13 14:23] LABS: NT-proBNP (BNP-Adult 18+) 1290 pg/mL (<125); Troponin I < 0.012 ng/mL (0.01-0.034)
[2023-01-13 14:25] LABS: Hemoglobin 6.3 g/dL (12.0-16.0)
[2023-01-13 14:26] LABS: Add Manual Diff / Slide Review SLIDE REVIEW; Hematocrit 20.9 % (36-46)
[2023-01-13 14:27] LABS: Anisocytosis 1+; Hypochromasia 1+; Microcytosis 2+
[2023-01-13 14:28] LABS: Procalcitonin 40.1 ng/mL (<0.5)
--- NOTE | 2023-01-13 14:28 | DI.ECHO.S_ITS ---
[facility]---------+ [facility] +---------+ : : [address] [place] : : : : [id number] : : : : Phone: [phone]+ Echocardiogram Report + + :Name: IVAN LU Study Date: 01/13/2023 Height: 60 in : :[facility] ReadingLocation: Weight: 140 lb: : Gender: Female BSA: 1.6 m2 : :: 1990 Age: 32 yrs BP: 95/53 mmHg: :Reason For Study: ENDOCARDITIS : :Ordering Physician: ZOILA, : :NEGAR Performed By: Argentina Meza : :Referring: NEGAR CUMMINGS : + + Interpretation Summary Images were not obtained from all of the standard acoustic windows due to the limited scope of the study. The patient was in sinus tachycardia with heart rates between 113-123 bpm during the exam. The ejection fraction is estimated to be 60-65%. The interventricular septum is flattened, consistent with a right ventricular pressure/volume condition. The right ventricular systolic function is normal. There is a small vegetation or mass on the tricuspid valve. Procedure: Images were not obtained from all of the standard acoustic windows due to the limited scope of the study. The study quality was technically adequate. There is no prior echocardiogram noted for this patient. The patient was in sinus tachycardia with heart rates between 113-123 bpm during the exam. Left Ventricle: The left ventricle is normal in size and wall thickness. The ejection fraction is estimated to be 60-65%. The interventricular septum is flattened, consistent with a right ventricular pressure/volume condition. Right Ventricle: The right ventricular systolic function is normal. Mitral Valve: The mitral valve is grossly normal. A vegetation on the mitral valve cannot be excluded. Aortic Valve: The aortic valve is trileaflet. There is no obvious aortic valvular vegetation. No aortic regurgitation is present. Tricuspid Valve: There is a small vegetation or mass on the tricuspid valve. There is mild tricuspid regurgitation. Pulmonic Valve: The pulmonic valve is not well visualized. A pulmonic valvular vegetation cannot be excluded. Pericardium/ Pleura There is no pericardial effusion. There is no pleural effusion. MMode/2D Measurements & Calculations LVIDd: 4.3 cm LVIDs: 2.3 cm FS: 46.0 % IVSd: 1.1 cm LVPWd: 0.87 cm LV loomis. diameter/BSA (cm/m^2): 2.7 LV sys. diameter/BSA (cm/m^2): 1.4 Doppler Measurements & Calculations TR max lilia: 323.4 cm/sec TR max P.1 mmHg Reading Physician:TAO
[2023-01-13] MEDS: NOREPINEPHRINE BITARTRATE/D5W 4 MG/250 ML PLAST..BAG 23.814 MG IV (14:41)
[2023-01-13] MEDS: PIPERACILLIN/TAZO 4.5 GM in SODIUM CHLORIDE 0.9% 100 ML IV (14:47)
[2023-01-13 14:52] LABS: Adenovirus Not Detected (Not Detect); Coronavirus 229E Not Detected (Not Detect); Coronavirus HKU1 Not Detected (Not Detect); Coronavirus NL 63 Not Detected (Not Detect); Coronavirus OC43 Not Detected (Not Detect); Human Metapneumovirus Not Detected (Not Detect); Human Rhinovirus/Enterovirus Not Detected (Not Detect); Influenza A Not Detected (Not Detect); Influenza B Not Detected (Not Detect); Parainfluenza Virus 1 Not Detected (Not Detect); Parainfluenza Virus 2 Not Detected (Not Detect); Parainfluenza Virus 3 Not Detected (Not Detect); Parainfluenza Virus 4 Not Detected (Not Detect); SARS- CoV-2 Not Detected (Not Detecte)
[2023-01-13 14:53] LABS: B. parapertussis Not Detected (Not Detecte); Bordetella pertussis Not Detected (Not Detecte); Chlamydophila pneumoniae Not Detected (Not Detect); Mycoplasma pneumoniae Not Detected (Not Detect); Respiratory Syncytial Virus Not Detected (Not Detect)
[2023-01-13] MEDS: VANCOMYCIN 1,000 MG/200 ML PIGGYBACK 200 MG IV (15:30)
[2023-01-13 15:50] LABS: Reflexed Lactate in 2 Hours Y
--- NOTE | 2023-01-13 15:59 | PC.NURSE ---
Per provider Abilio trial off norepi drip. Per provider Juan Manuel OK to use central line prior to x-ray confirmation.
[2023-01-13 16:55] LABS: UR Morphine/Opiate cutoff 300 Positive (Negative); Ur Creatinine Normal (Normal); Ur Specific Gravity Normal (Normal); Urine Amphetamines Positive (Negative); Urine Cocaine Negative (Negative); Urine Tetrahydrocannabinol Negative (Negative); Urine pH Normal (Normal)
[2023-01-13 16:56] LABS: Urine Barbiturates Negative (Negative); Urine Benzodiazepines Negative (Negative); Urine MDMA Negative (Negative); Urine Methadone Negative (Negative); Urine Methamphetamines Positive (Negative); Urine Oxycodone Negative (Negative); Urine Phencyclidine Negative (Negative); Urine Tricyclic Antidepressant Negative (Negative)
--- NOTE | 2023-01-13 16:58 | PC.NURSE ---
Pt temperature was being measured via oral thermometer during initial start of blood transfusion. Temp sensing sandy in now and currently shows core temperature of 99.7 F. Provider made aware of patient's temperature and situation. Instructed to slow rate of blood transfusion and continue to monitor for the next 30 mins. Will update provider if temperature increases.
[2023-01-13] MEDS: ACETAMINOPHEN 325 MG TABLET 975 MG PO (17:37)
--- NOTE | 2023-01-13 17:38 | PC.NURSE ---
Addendum entered by Anna Charles CNA 01/13/23 17:58: Update 1758: John, Shireen sup. for [facility] denied transfer for pt. No beds. 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 - (172) Prov/Slovenian spoke with Joyce at [facility]: No beds for the next 24-48 hrs, recommend to look else where. Not on waitlist - (172) Francine Marks didnt catch the name of person at transfer center: Call back in a couple hours to see if they can accommodate. Currently do not have enough staff to accept more people. - (173) [facility] spoke with Kathryn: On their waitlist. Will call back if pt accepted or not and THEN will ask for facesheet. - (173) [facility] spoke with the shireen sup. and didn't catch name: Going to call back to see if they have ICU beds or not. [facility] was contacted [phone]. Spoke with Omero and pt is also on their radar.
[2023-01-13 18:32] LABS: Lactate 2HR (Lactic Acid Rflx) 2.9 mmol/L (0.7-2.1)
[2023-01-13] MEDS: KETOROLAC 30 MG/ML VIAL 15 MG IV (18:38)
[2023-01-13] MEDS: ONDANSETRON 4 MG/2 ML INJ IV (18:38)
[2023-01-13] MEDS: SODIUM CHLORIDE 0.9% 1,000 ML 150 ML IV (18:46)
--- NOTE | 2023-01-13 22:01 | PC.NURSE ---
2107: This RN gives report and turns over care to [facility] DIANA Burnette and DIANA Rizvi. Infusions running as per AUG and .
[2023-01-14 03:18] LABS: Enterococcus faecalis Not Detected (Not Detect); Enterococcus faecium Not Detected (Not Detect); Listeria monocytogenes Not Detected (Not Detect); Staphylococcus epidermidis Not Detected (Not Detect); Staphylococcus lugdunensis Not Detected (Not Detect); Staphylococcus species DETECTED (Not Detect); mecA/C and MREJ (MRSA) Resista Not Detected (Not Detect)
[2023-01-14 03:19] LABS: Acinetobacter calcoa-baumannii Not Detected (Not Detect); Bacteroides fragilis Not Detected (Not Detect); Candida albicans Not Detected (Not Detect); Candida auris Not Detected (Not Detect); Candida glabrata Not Detected (Not Detect); Candida krusei Not Detected (Not Detect); Candida parapsilosis Not Detected (Not Detect); Candida tropicalis Not Detected (Not Detect); Cryptococcus neoformans/gatti Not Detected (Not Detect); Enterobacter cloacae complex Not Detected (Not Detect); Enterobacterales Not Detected (Not Detect); Haemophilus influenzae Not Detected (Not Detect); Klebsiella aerogenes Not Detected (Not Detect); Neisseria meningitidis Not Detected (Not Detect); Proteus species Not Detected (Not Detect); Pseudomonas aeruginosa Not Detected (Not Detect); Salmonella species Not Detected (Not Detect); Serratia marcescens Not Detected (Not Detect); Stenotrophomonas maltophilia Not Detected (Not Detect); Streptococcus agalactiae (Gr B Not Detected (Not Detect); Streptococcus pneumonia Not Detected (Not Detect); Streptococcus pyogenes (Gr A) DETECTED (Not Detect); Streptococcus species DETECTED (Not Detect)
--- NOTE | 2023-01-14 03:24 | PC.NURSE ---
results of blood cultures received from lab. all 4 bottles Gm+cocci, called [facility] and spoke with DIANA Verde and relayed the results [phone] ext [phone] Rm 346
== END 2023-01-13 21:08 | disposition short-term general hospital (02) ==
PROVIDERS: Emergency Provider Emergency Medicine; PCP Pediatrics
DX: I38 Endocarditis, valve unspecified (principal); A41.9 Sepsis, unspecified organism; D64.9 Anemia, unspecified; R00.0 Tachycardia, unspecified
CPT/HCPCS: 36415; 36430; 36569; 71045; 80053; 80305; 80320; 81003; 81025; 82550; 83605; 83690; 83880; 84145; 84484; 84703; 85025; 85610; 85730; 86078; 86850; 86900; 86901; 87040; 87154; 87186; 87633; 93005; 93307; 96365; 96366; 96368; 96375; 99285; 99291; 99292; P9016; J1885; J2405; J2543

== ENCOUNTER → 2024-03-04 15:26 | Outpatient (CLI) | payer OTHER, MEDICAID, SELFPAY | LOC: LAB 15:27 | PROVIDERS: PCP Family Medicine; Referring Provider Family Medicine; Visit Provider Family Medicine | DX: Z11.1 Encounter for screening for respiratory tuberculosis (principal) | CPT/HCPCS: 36415; 86480 ==

== ENCOUNTER → 2025-01-20 14:25 | Outpatient (CLI) | payer OTHER, SELFPAY ==
--- NOTE | 2025-01-20 14:26 | DI.US.S_ITS ---
PROCEDURE: US PELVIC COMPLETE INDICATIONS: Menorrhagia TECHNIQUE: Real-time scanning was performed of the pelvic organs, with image documentation. Additional endovaginal scanning was necessary due to incomplete visualization of the adnexal and endometrial structures by transabdominal scanning. COMPARISON: None. FINDINGS: Uterus: 8.1 x 4.9 x 6.4 cm. IUD appears to be in appropriate position. Endometrium is borderline thickened at 15 mm. Ovaries: Mildly prominent right ovary measuring 11 cc. Multiple follicular cysts are present, measuring 1.9 cm and 1.5 cm. The 1.5 cm cyst may be hemorrhagic. Left ovary measures 7 cc, unremarkable Other: No pathologic free fluid IMPRESSION: Endometrium is borderline thickened at 15 mm. IUD appears to be in appropriate position. Consider 1-2 month follow-up if there is sufficient clinical concern to assess for temporal thinning Dictated by: Dallas Spangler M.D. on 01/21/2025 at 7:00 Approved by: Dallas Spangler M.D. on 01/21/2025 at 7:01
== END ==
PROVIDERS: PCP Family Medicine; Referring Provider Family Medicine; Visit Provider Obstetrics & Gynecology
DX: N92.0 Excessive and frequent menstruation with regular cycle (principal); N83.01 Follicular cyst of right ovary; Z97.5 Presence of (intrauterine) contraceptive device
CPT/HCPCS: 76830; 76856